=== PATIENT | female | born 1980 | race Two or more races ===

== ENCOUNTER 2018-03-07 09:30 | Outpatient (AMBR) | payer MEDICAID, SELFPAY ==
--- NOTE | 2018-02-23 09:14 | PT.ODAYNRPT ---
PT Outpatient Daily Note Date of Service: February 23, 2018 OP Daily Note Visit Reasons: left foot Outpatient Physical Therapy Treatment Date: 02/23/18 Subjective: Pt's ankle continues to swell however is walking better with less ankle pain. Pt mention that she still has difficulty walking barefoot due to hypersensitivity. Objective: Please see flow chart for list of ther ex performed Assessment: improved ankle mobility allowing patient to ambulate with less difficulty. Pt can also balance with less use of hands. Plan: Continue with PT Length of Time (minutes) of Treatment: 30 Minutes Office Procedures PT Procedures PT Date of Service: 02/23/18 Therapeutic Exercise 30 minutes: Yes
--- NOTE | 2018-03-02 14:47 | PT.ODAYNRPT ---
PT Outpatient Daily Note Date of Service: March 02, 2018 OP Daily Note Visit Reasons: left foot Outpatient Physical Therapy Treatment Date: 03/02/18 Subjective: Pt landed a new job and has been standing a lot lately. Since the new job Pt notice more ankle and foot pain. Objective: Please see flow chart for list of ther ex performed Assessment: perform minimal closed chain exercise today due to Pt's complaint of ankel pain. Notice some swelling around the ankle today prior to PT session. Plan: Continue with PT Length of Time (minutes) of Treatment: 30 Minutes Office Procedures PT Procedures PT Date of Service: 02/23/18 Therapeutic Exercise 30 minutes: Yes PT Procedures PT Date of Service: 03/02/18 Therapeutic Exercise 30 minutes: Yes
--- NOTE | 2018-03-07 11:08 | PT.ODAYNRPT ---
PT Outpatient Daily Note Date of Service: March 07, 2018 OP Daily Note Visit Reasons: left foot Outpatient Physical Therapy Treatment Date: 03/07/18 Subjective: Pt's left ankle feels so so. Pt mention that her right foot is still to hurt left the left. Pt is seeing the early intervention specialist on . Objective: Please see flow chart for list of ther ex performed Assessment: tolerate exercises with minimal pain Plan: Continue with PT Length of Time (minutes) of Treatment: 30 Minutes Office Procedures PT Procedures PT Date of Service: 02/23/18 Therapeutic Exercise 30 minutes: Yes PT Procedures PT Date of Service: 03/07/18 Therapeutic Exercise 30 minutes: Yes PT Procedures PT Date of Service: 03/02/18 Therapeutic Exercise 30 minutes: Yes
== END 2018-03-16 23:59 ==
PROVIDERS: PCP Podiatrist; Referring Provider Podiatrist; Visit Provider Podiatrist
DX: I10 Essential (primary) hypertension (principal)
CPT/HCPCS: 97110

== ENCOUNTER → 2024-10-16 | Outpatient (CLI) | payer BC, MEDICAID, SELFPAY ==
[2024-10-16 16:40] LABS: Thyroid Stimulating Hormone 1.31 uIU/mL (0.55-4.78)
[2024-10-23 06:35] LABS: T3,Total* 113 ng/dL (76-181)
== END | disposition home or self-care (01) ==
LOC: COPL 15:17
PROVIDERS: PCP Registered Nurse; Referring Provider Nurse Practitioner Family; Visit Provider Nurse Practitioner Family
DX: E06.3 Autoimmune thyroiditis (principal)
CPT/HCPCS: 36415; 84439; 84443; 84480

== ENCOUNTER → 2025-02-04 | Outpatient (CLI) | payer BC, MEDICAID, SELFPAY ==
--- NOTE | 2025-02-04 16:38 | XR_ITS ---
Examination: Pelvic ultrasound, transabdominal, complete Technique: Transabdominal ultrasound of the pelvis performed using grayscale imaging Date and time of exam: February 04, 2025 1651 hrs. Indications: Lower pelvic pain and cramping beginning 4 days ago Findings: Uterus 10.3 cm fundal uterine masses 11.9 x 11 mm, 11 x 12 x 11 mm Right ovary 4.4 cm arterial flow 17 mm follicle Left ovary 2.9 cm arterial flow 14 mm follicle Impression: 2 uterine fundal masses as above, likely fibroid degeneration, recommend 6 month follow-up transvaginal pelvic sonography
[2025-02-04 17:12] LABS: Collection Type, Urine Clean Catch
[2025-02-04 18:00] LABS: Basophils # (Auto) 0.1 Thou/mm3 (0.0-0.2); Basophils % (Auto) 1 % (0-2.5); Eosinophils # (Auto) 0.1 Thou/mm3 (0.0-0.5); Eosinophils % (Auto) 2 % (0-10); Hematocrit 37.4 % (36.0-46.0); Hemoglobin 12.9 g/dL (12.0-16.0); Immature Granulocytes % (Auto) 0 % (0-0); Immature Granulocytes Auto 0.02 Thou/mm3 (0.00-0.00); Lymphocytes # (Auto) 2.3 Thou/mm3 (1.0-4.8); Lymphocytes % (Auto) 30 % (10-50); Mean Corpuscular HGB Conc 34.5 g/dl (31.0-37.0); Mean Corpuscular Hemoglobin 28.2 pg (25.0-35.0); Mean Corpuscular Volume 82 fL (80-100); Monocytes # (Auto) 0.5 Thou/mm3 (0.0-0.8); Monocytes % (Auto) 7 % (0-12); Neutrophils # (Auto) 4.5 Thou/mm3 (1.8-7.7); Neutrophils % (Auto) 60 % (37-80); Nucleated Red Blood Cell % 0 /100 WBC (0); Platelet Count 263 Thou/mm3 (140-440); RDW Standard Deviation 39.2 fL (36.4-46.3); Red Blood Count 4.57 Miln/mm3 (4.00-5.20); White Blood Count 7.5 Thou/mm3 (3.6-11.0)
[2025-02-04 18:04] LABS: HCG,Qualitative Serum Negative
[2025-02-04 18:13] LABS: Follicle Stimulating Hormone 12.24 mIU/mL (See Note)
[2025-02-04 18:40] LABS: Bilirubin,Urine Negative (Negative); Blood,Urine Negative (Negative); Clarity,Urine Clear (Clear/Hazy); Color,Urine Lt-Yellow (Lt Yel-Yel); Culture Indicated,Urine Not Indicated; Glucose, Urine Negative (Negative); Ketones,Urine Negative (Negative); Leukocyte Esterase,Urine Positive (Negative); Nitrite,Urine Negative (Negative); Protein,Urine Negative (Neg - Trace); RBC,Urine 2 /hpf (0-3); Specific Gravity,Urine 1.022 (1.001-1.035); Squamous Epithelial Cell,Urine 5 /hpf (0-5); Urobilinogen,Urine Negative mg/dL (0.0-1.0); WBC,Urine 2 /hpf (0-5)
[2025-02-04 18:48] LABS: Alanine Aminotransferase 37 U/L (10-49); Albumin, Serum 4.2 gm/dL (3.5-5.0); Albumin/Globulin Ratio 1.8 (1.2-2.2); Alkaline Phosphatase 68 U/L (46-116); Anion Gap 6 (7-16); Aspartate Amino Transferase 29 U/L (0-34); BUN/Creatinine Ratio 17 Ratio (12-20); Bilirubin,Total 0.3 mg/dL (0.3-1.2); Blood Urea Nitrogen 12 mg/dL (9-23); Calcium 9.4 mg/dL (8.3-10.6); Calcium (Corrected) 9.4 mg/dL (8.5-10.1); Carbon Dioxide 27.3 mMol/L (20.0-31.0); Chloride 109 mMol/L (98-107); Creatinine (Component) 0.7 mg/dL (0.6-1.3); Free T4 (Free Thyroxine) 1.29 ng/dL (0.89-1.76); Globulin 2.4 gm/dL (2.3-3.5); Glucose 92 mg/dL (74-106); Osmolality,Calculated 282 (275-295); Potassium 4.8 mMol/L (3.4-5.1); Sodium 142 mMol/L (136-145); Thyroid Stimulating Hormone 1.77 uIU/mL (0.55-4.78); Total Protein 6.6 gm/dL (5.7-8.2); eGFR > 60 See Note
[2025-02-08 06:59] LABS: T3,Total* 115 ng/dL (76-181)
== END | disposition home or self-care (01) ==
LOC: CDIM 16:47 → COPL 17:03
PROVIDERS: PCP Family Medicine; Referring Provider Nurse Practitioner Family; Visit Provider Nurse Practitioner Family
DX: E06.3 Autoimmune thyroiditis (principal); R10.2 Pelvic and perineal pain
CPT/HCPCS: 36415; 76856; 80053; 81001; 83001; 84439; 84443; 84480; 84703; 85025

== ENCOUNTER 2025-03-12 15:30 | Outpatient (AMB) | payer BC, MEDICAID, SELFPAY ==
--- NOTE | 2025-03-12 16:01 | GYNCLNT_ITS ---
Vital Signs 03/12/25 16:03 Height 1.63 m Height Method Stated Weight 99.79 kg Weight Measurement Method Standing Scale BMI 37.8 BP 119/75 Blood Pressure Source Automatic Cuff Blood Pressure Location Right Upper Arm Position Sitting Respiration 17 Pulse 74 Pulse Source Monitor Temp 97.4 F Temp Source Temporal Artery Scan Pulse Oximetry (%) 98 Oxygen Delivery Method Room Air Allergies/Home Meds Allergies & Medications Allergies No Known Allergies Allergy (Verified 03/12/25 16:05) Medication Reconciliation hydrocodone 10 mg-acetaminophen 325 mg tablet ([place]) 0.5 tab PO QDAY PRN Pain 02/16/20 [History Confirmed 03/12/25] hydrocodone bitartrate 15 mg capsule, oral only, extended rel 12 hr 15 mg PO Q12H 02/16/20 [History Confirmed 03/12/25] ibuprofen 800 mg tablet 800 mg PO TID PRN Pain 02/16/20 [History Confirmed 03/12/25] losartan 50 mg tablet 50 mg PO QDAY 02/16/20 [History Confirmed 03/12/25] levofloxacin 500 mg tablet 500 mg PO QDAY #10 tabs 02/18/20 [Rx Confirmed 03/12/25] levothyroxine 88 mcg tablet 88 mcg PO ACBR #30 tabs 02/18/20 [Rx Confirmed 03/12/25] norethindrone acetate 5 mg tablet 5 mg PO QDAY 30 days #30 tabs 03/12/25 [Rx] Intake Visit Data Collection New Patient or Established: New Patient (never been to [facility]) Reason for Visit:: OVARIAN CYST [employer] Lead Required: No Do You Feel Safe at Home: Yes Authorities Contacted: N/A PCP or OBGYN visit in last 3 months: No Hx Now: No Are you currently on any form of Control: No Last menstrual period: 02/09/25 Pain Present Currently: Yes Pain Location: Ankle Pain Scale Used: Randall-Matos/Numerical Pain scale:: 6 Smoking Status Smoking Status: 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 smoker 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 1. Little interest or pleasure in doing things: not at all 2. Feeling down, depressed, or hopeless: not at all Total score: 0 PHQ-9 3. Trouble falling or staying asleep, or sleeping too much: Not at all 4. Feeling tired or having little energy: Not at all 5. Poor appetite or overeating: Not at all 6. Feeling bad about yourself - or that you are a failure or have let yourself or your family down: Not at all 7. Trouble concentrating on things, such as reading the newspaper or watching television: Not at all 8. Moving or speaking so slowly that other people could have noticed? - Or the opposite - being so fidgety or restless that you have been moving around a lot more than usual: not at all 9. Thoughts that you would be better off or of hurting yourself in some way: Not at all Total score: 0 If you checked off any problems, how difficult have these problems made it for you to do your work, take care of things at home, or get along with other people?: not difficult at all Source: Developed by Drs. Sam Rutherford, Pura Hunt, Gadiel Alaniz and colleagues, with an educational ashwin from [employer]. Depression screen completed yes Social History Living Situation History Lives With: Family Housing: House Tobacco History Smoking Status: Never smoker Second Hand Smoke Exposure: No Alcohol History Alcohol Intake: Current Alcohol Intake Frequency: A Few Times a Month Alcohol Intake Frequency Other:: white russians, budweiser Substance Use History Substance Use: stopped 7 years ago, marijuana Domestic Abuse History Do You Feel Safe at Home: Yes History of Present Illness HPI Narrative Betty Arroyo, a 44-year-old female, presents for consultation regarding a possible ovarian cyst. She reports experiencing cramping pain, irregular menstrual cycles, and heavy periods. The patient describes the onset of symptoms as cramping pain on her side radiating to her back. She characterizes the pain as different from her usual chronic pain, describing it as aching and doling. The pain was not alleviated by her usual pain medication ([place]). Betty also reports changes in her menstrual cycle, with periods becoming wacky and really heavy, occurring approximately every two weeks. She mentions never having experienced such heavy periods before. Betty initially consulted her primary care physician about these symptoms, who ordered imaging that revealed cysts and small fibroids. She subsequently presented to the ER earlier this year, where imaging on February 04, 2025, showed uterine masses and ovarian follicles. The patient was recommended a 6-month follow-up ultrasound. The patient has been managing chronic pain since 2017, taking [place] for foot deformities. 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 In addition to [place], she has tried ibuprofen 800mg, hot compresses, baths, and electrosupportive measures for pain relief. Betty denies any history of breast problems, lumps, or cysts, and reports no other major gynecological issues. She has two children, aged 21 and 19, delivered vaginally, and has had a gallbladder surgery in the past. Betty's current medication regimen includes levothyroxine (125mcg daily and 50mcg once weekly), metoprolol, diltiazem, losartan, and recently started Zepbound for weight management related to sleep apnea. She has been on levo thyroxine for over 15 years due to thyroid dysfunction. ROS: General: Positive for pain. Genitourinary: Positive for irregular menstrual cycles, heavy menstrual bleeding, and cramping. Musculoskeletal: Positive for foot pain. Exam General General Appearance: alert, in no apparent distress and healthy appearing Head Head exam: atraumatic Neck Neck exam: Present normal inspection and trachea midline Chest Chest inspection: Present normal inspection and symmetric chest wall rise External exam: Present normal external exam; Absent tenderness Neuro Neurological exam: Present oriented X3 Psych Psychiatric exam: Present normal affect and normal mood Results Objective Imaging: Ultrasound (February 04, 2025): Uterus measuring 10.3 cm. Two fundal uterine masses identified, measuring 11.9 x 11 mm and 11 x 12 x 11 mm. Right ovary 4.4 cm with 17 mm follicle. Left ovary 2.9 cm with 14 mm follicle. 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 - Experiences pelvic pain radiating to back, different from chronic pain issues. - Recent ultrasound shows normal-sized uterus with two small fundal masses, likely fibroids. - Ovaries appear normal with follicles. - FSH levels not indicative of menopause. - Pain may be due to ruptured ovarian cyst, with residual small cysts. - Surgical intervention not indicated due to small size of fibroids and cysts. Treatment Plan: - Start progesterone therapy: ? Initial 30-day course, once daily at night ? Separate from other medications ? May take a couple of weeks to be effective - Follow-up appointment in 30 days: ? Assess symptom improvement ? Consider dose adjustment if tolerating well ? Order repeat ultrasound and blood work - If symptoms persist, consider: ? Possible increase in progesterone dose ? Discuss potential for endometrial ablation - Continue current pain management regimen - Encourage conservative measures (hot compress, ibuprofen, soaking baths) - Monitor effect of recently started Zepbound on weight and symptoms
[2025-03-12 16:03] VITALS: BP 119/75; PULSE 74; RESP 17; TEMP 36.3; O2SAT 98; BMI 37.8
== END 2025-03-12 16:41 | disposition home or self-care (01) ==
LOC: HODSOBC 15:30
PROVIDERS: PCP Family Medicine; Referring Provider Family Medicine; Supervising Provider Obstetrics & Gynecology; Visit Provider Obstetrics & Gynecology
DX: D25.1 Intramural leiomyoma of uterus (principal); N93.9 Abnormal uterine and vaginal bleeding, unspecified; I10 Essential (primary) hypertension; E03.9 Hypothyroidism, unspecified; Z79.890 Hormone replacement therapy; Z79.899 Other long term (current) drug therapy
CPT/HCPCS: 99203; G0463

== ENCOUNTER → 2025-05-16 | Outpatient (CLI) | payer BC, MEDICAID, SELFPAY ==
[2025-05-16 12:45] LABS: Free T4 (Free Thyroxine) 1.59 ng/dL (0.89-1.76); Thyroid Stimulating Hormone 0.76 uIU/mL (0.55-4.78)
[2025-05-20 11:02] LABS: ACTH, Plasma* 7 pg/mL (6-50)
[2025-06-06 06:57] LABS: Cortisol,total,LC/MS/MS* 8.7 mcg/dL; T3,Total* 100 ng/dL (76-181)
== END | disposition home or self-care (01) ==
PROVIDERS: PCP Registered Nurse; Referring Provider Nurse Practitioner Family; Visit Provider Nurse Practitioner Family
DX: E06.3 Autoimmune thyroiditis (principal); E27.9 Disorder of adrenal gland, unspecified
CPT/HCPCS: 36415; 82024; 82533; 84439; 84443; 84480

== ENCOUNTER → 2025-09-03 | Outpatient (CLI) | payer BC, MEDICAID, SELFPAY ==
[2025-09-03 16:56] LABS: Free T4 (Free Thyroxine) 1.35 ng/dL (0.89-1.76); Thyroid Stimulating Hormone 3.99 uIU/mL (0.55-4.78)
[2025-09-09 06:49] LABS: T3,Total* 94 ng/dL (76-181)
== END | disposition home or self-care (01) ==
PROVIDERS: PCP Registered Nurse; Referring Provider Nurse Practitioner Family; Visit Provider Nurse Practitioner Family
DX: E06.3 Autoimmune thyroiditis (principal)
CPT/HCPCS: 36415; 84439; 84443; 84480